=== PATIENT | female | born 1990 | race Two or more races ===

== ENCOUNTER 2022-10-04 09:33 | Day surgery (SDC) | payer OTHER ==
[~2022-10-04] VITALS: Ht 167.6 cm; Wt 111.1 kg
[~2022-10-04 09:33] MED LIST: SYNTHROID75 MCG PO
== END 2022-10-04 17:55 | disposition home or self-care (01) ==
LOC: CIR.AMB 09:33
PROVIDERS: ATTEND Obstetrics & Gynecology Gynecologic Oncology
DX: N85.02 Endometrial intraepithelial neoplasia [EIN] (principal); Z20.822 Contact with and (suspected) exposure to COVID-19; E03.9 Hypothyroidism, unspecified

== ENCOUNTER 2024-03-26 06:00 | Outpatient (CLI) | payer OTHER ==
[~2024-03-26] VITALS: Ht 167.6 cm; Wt 63.5 kg
[2024-03-26] MEDS ORDERED: NOXIFOL-D32500 UNIT PO (13:33)
[2024-03-26 13:34] VITALS: BP 137/82
== END 2024-03-26 06:01 | disposition home or self-care (01) ==
LOC: EKG 06:00 → ADM 11:30 → CIR.AMB 04-02 11:30 → EDSTATUS 04-02 11:30 → CIR.AMB 04-02 19:15
PROVIDERS: ATTEND Obstetrics & Gynecology Gynecologic Oncology
DX: C56.1 Malignant neoplasm of right ovary (principal); D64.9 Anemia, unspecified; N39.0 Urinary tract infection, site not specified; R79.89 Other specified abnormal findings of blood chemistry; Z01.818 Encounter for other preprocedural examination; Z20.822 Contact with and (suspected) exposure to COVID-19; I10 Essential (primary) hypertension; N85.00 Endometrial hyperplasia, unspecified

== ENCOUNTER 2024-05-28 06:52 | Day surgery (SDC) | payer OTHER ==
[2024-05-22 12:50] VITALS: BP 130/81
[2024-05-22 13:27] LABS: COVID-19 AG NEGATIVE (NEGATIVE)
[2024-05-22 14:37] LABS: RH POSITIVE
[~2024-05-28] VITALS: Ht 167.6 cm; Wt 113.4 kg
[~2024-05-28 06:52] MED LIST changes: +NOXIFOL-D32500 UNIT PO; +SYNTHROID100 MCG PO
[2024-05-28] MEDS ORDERED: METRONIDAZOLE/SODIUM CHLORIDE 500 MG/100 ML PIGGYBACK IV ONE (07:38)
[2024-05-28] MEDS ORDERED: CEFAZOLIN SODIUM 1,000 MG VIAL ONE (07:38)
[2024-05-28] MEDS ORDERED: POVIDONE-IODINE 118 ML BOTT TOP ONE (08:15)
[2024-05-28] MEDS ORDERED: KETOROLAC TROMETHAMINE 30 MG VIAL IV STA (09:00)
[2024-05-28] MEDS ORDERED: KETOROLAC TROMETHAMINE 30 MG VIAL ONE (11:45)
[2024-05-28] MEDS ORDERED: KETOROLAC TROMETHAMINE 30 MG VIAL IV ONE (11:50)
== END 2024-05-28 12:45 | disposition home or self-care (01) ==
LOC: CIR.AMB 06:52
PROVIDERS: ATTEND Obstetrics & Gynecology Gynecologic Oncology
DX: N85.00 Endometrial hyperplasia, unspecified (principal); N93.8 Other specified abnormal uterine and vaginal bleeding; E03.8 Other specified hypothyroidism